=== PATIENT | female | born 1965 | race Caucasian/White ===

== ENCOUNTER 2023-09-11 14:23 | Outpatient (CLI) | payer BC, SELFPAY ==
--- NOTE | 2023-09-11 13:00 | DI.RAD_ITS ---
Exam(s) XR HIP PELVIS ADULT BL EXAM: XR HIP PELVIS ADULT BL CLINICAL HISTORY: BILATERAL HIP PAIN. TECHNIQUE: 2D digital imaging was performed of the pelvis and bilateral hips. Five images were obta ined. AP pelvis and lateral views of both hips were obtained. COMPARISON: No exams were available for comparison FINDINGS: BONES: No acute fracture is present. No bony destructive lesion is seen. JOINTS: No dislocation present. There is mild axial joint space narrowing of the hips bilaterally. SOFT TISSUE: Normal. IMPRESSION: Mild joint space narrowing of the hips bilaterally. DATA REPOSITORY: RADIATION DOSE DELIVERED:
== END 2023-09-11 14:24 | disposition home or self-care (01) ==
LOC: DIORS 14:23
PROVIDERS: PCP Nurse Practitioner; Visit Provider Student in an Organized Health Care Education/Training Program
DX: M16.0 Bilateral primary osteoarthritis of hip
CPT/HCPCS: 73521

== ENCOUNTER 2023-11-07 09:43 | Day surgery (SDC) | payer BC, SELFPAY ==
[2023-11-07] VITALS (11 sets, daily range): BP systolic 87–139; BP diastolic 36–80; PULSE 73–86; RESP 12–19; TEMP 36.3–36.7; O2SAT 92–98; BMI 35.6
--- NOTE | 2023-11-07 07:19 | W.PM.DSUDISC ---
Date of service: 11/07/23 Time of Service: 14:00 Discharge Plan Disposition Patient Disposition: Home Condition: Stable Discharge Details Attending Provider: Farrukh Nicholson Primary Care Provider: Leticia Victor Home Meds and New Rx's Prescriptions: New naproxen 250 mg tablet 250 - 500 mg PO BID PRN (Reason: moderate pain and swelling) Qty: 40 0RF oxycodone 5 mg tablet 5 - 10 mg PO .q4-6h PRN (Reason: severe pain) Qty: 12 0RF aspirin 81 mg capsule 81 mg PO BID 14 Days Qty: 28 0RF Continued omeprazole 20 mg capsule,delayed release(DR/EC) 20 mg PO DAILY atorvastatin 20 mg tablet 20 mg PO QHS ferrous sulfate 325 mg (65 mg iron) tablet 325 mg PO DAILY potassium chloride 20 mEq tablet extended release 20 meq PO DAILY duloxetine 60 mg capsule,delayed release(DR/EC) 60 mg PO DAILY labetalol 200 mg tablet 200 mg PO BID losartan 50 mg tablet 50 mg PO DAILY chlorthalidone 25 mg tablet 25 mg PO DAILY cyclobenzaprine 5 mg tablet 5 mg PO QHS PRN metformin 500 mg tablet 500 mg PO DAILY hydroxychloroquine 200 mg tablet 200 mg PO BID semaglutide 2 mg/dose (8 mg/3 mL) pen injector 2 mg subcut QWEEK conjugated estrogens 0.625 mg tablet 0.625 mg PO DAILY Rx Instructions: cyclically Discharge Instructions Additional Instructions: Surgery: Bilateral hip endoscopy with iliotibial band release and trochanteric bursectomy Activity: Weightbearing as tolerated. May use walker as needed for a few days. Gradually advance to full range of motion and activity over the next few weeks. A physical therapy prescription will be provided separately in the office at follow up if needed. Prescriptions: Aspirin 81 mg take 1 twice daily to prevent a blood clot for 2 weeks, starting tomorrow morning Naproxen 250 mg take 1-2 every 12 hours with a meal as needed for moderate pain Oxycodone 5 mg take 1-2 every 4-6 hours as needed for severe pain You may use [id number] Tylenol (acetaminophen) as needed for mild pain. These pain medications may be taken all at once or in different combinations as needed. Also, recommend Colace (docusate) as a stool softener as surgery and pain medicine cause constipation. You may try [id number] diphenhydramine (Benadryl) 25-50 mg nightly as a sleep aid Dressings: Leave dressing in place for 3 days. May then remove and leave open to air or cover incisions with Band-Aids. Leave the sticky Steri-Strips in place until they fall off or remove them after you shower. May shower after 5 days. Follow-up: 10-[address] Nicholson You may take off the leg compression stockings this evening at home. You may also leave them on a few days longer if you have a history of leg swelling or edema. Let us know right away if you develop any redness, drainage, fevers, chest pain, or trouble breathing. Do not drink alcohol or drive for at least 24 hours after anesthesia. Please call the office during business hours with any questions or concerns. Discharge Orders Discharge Orders: Discharge Order (Routine); Ordered 11/07/23 Ordered By: Tosin Blood DS: Diagnosis Discharge Diagnosis (1) Iliotibial band syndrome of both sides: Status: Acute (2) Trochanteric bursitis of both hips: Status: Acute
[2023-11-07] MEDS: Lactated Ringers 1,000 ML 30 ML IV ×2 (10:45→15:18)
--- NOTE | 2023-11-07 12:36 | W.ANESPRE ---
General Info Date of Service Date Performed: 11/07/23 Height: 5 ft 2 in Weight: 88.451 kg Body Mass Index (BMI): 35.6 Surgical Procedure: Operation Date: 11/07/23 12:50 Proposed Procedure Side Surgeon p Endoscopic Iliotibial Band Release w/ Buresectomy Bilateral Farrukh Nicholson MD Meds Allergies and Home Medications Allergies Allergy/AdvReac Type Severity Reaction Status Date / Time No Known Allergies Allergy Verified 11/05/23 14:03 Home Medication Medication Instructions Recorded atorvastatin 20 mg tablet 20 mg PO QHS 08/27/23 chlorthalidone 25 mg tablet 25 mg PO DAILY 08/27/23 conjugated estrogens 0.625 mg 0.625 mg PO DAILY 08/27/23 tablet cyclobenzaprine 5 mg tablet 5 mg PO QHS PRN 08/27/23 duloxetine 60 mg capsule,delayed 60 mg PO DAILY 08/27/23 release ferrous sulfate 325 mg (65 mg 325 mg PO DAILY 08/27/23 iron) tablet hydroxychloroquine 200 mg tablet 200 mg PO BID 08/27/23 labetalol 200 mg tablet 200 mg PO BID 08/27/23 losartan 50 mg tablet 50 mg PO DAILY 08/27/23 metformin 500 mg tablet 500 mg PO DAILY 08/27/23 omeprazole 20 mg capsule,delayed 20 mg PO DAILY 08/27/23 release potassium chloride 20 mEq 20 meq PO DAILY 08/27/23 tablet,extended release semaglutide 2 mg/dose (8 mg/3 mL) 2 mg subcut QWEEK 08/27/23 subcutaneous pen injector Current Visit Medications: Current Medications Generic Name Dose Route Start Last Admin Trade Name Ermiasq PRN Reason Stop Dose Admin Ringer's Solution 1,000 mls @ 30 mls/hr 11/07/23 06:00 11/07/23 10:45 IV 11/07/23 23:59 30 mls/hr INFUSION JAMILA Administration Cefazolin Sodium/Dextrose 2 gm in 50 mls @ 100 mls/hr 11/07/23 06:00 Ancef Duplex IVPB 11/07/23 23:59 PREOP JAMILA IV Miscellaneous Supplies 1 each 11/07/23 06:00 Iv Access IV 11/07/23 23:59 DIRECTED JAMILA Oxycodone HCl 0 mg 11/07/23 07:18 Oxycodone 5 Mg Tab PO 12/07/23 07:17 Q3H PRN PRN Pain Sodium Chloride 0 ml 11/07/23 06:00 Normal Saline Flush 10 Ml Syr IV 11/07/23 23:59 PRN PRN Sodium Chloride 0 ml 11/07/23 06:00 Normal Saline 10 Ml Vial IJ 11/07/23 23:59 DIRECTED PRN Sterile Water 0 ml 11/07/23 06:00 Water,Injection,Sterile 10 Ml Vial IJ 11/07/23 23:59 DIRECTED PRN PFSH Active Problems Active Problems: Problem Status Onset Code Iliotibial band syndrome of both sides M76.31, M76.32 Trochanteric bursitis of both hips M70.61, M70.62 Obesity E66.9 Rheumatoid arthritis M06.9 Chronic pain syndrome G89.4 Hypertension I10 Type 2 diabetes mellitus E11.9 Medical History Medical History Former smoker Stress incontinence Post menopausal syndrome Chronic fatigue Mood disorder Surgical History Surgical History Hx of cholecystectomy History of repair of ACL Hx of repair of rotator cuff History of right knee joint replacement History of hysteroscopy DOS 12/03/19 WITH D AND C STRE Tobacco Smoking/Tobacco Use Status: Former Tobacco Use Alcohol Alcohol Intake: former Substance Use Substance use: Never Substance use type: does not use Vital Signs and Lab Results Vital Signs Most Recent Vital Signs in EMR: Most Recent Vital Signs Temp Pulse Resp BP Pulse Ox 36.3 C L 78 18 123/76 98 11/07/23 09:47 11/07/23 09:47 11/07/23 09:47 11/07/23 09:47 11/07/23 09:47 Point of Care Results Point of Care Results: Finger Stick Blood Glucose 111 11/07/23 10:12 Lab Results Blood Type / Crossmatch: No Data to Display Complete Blood Count: No Data to Display Complete Metabolic Panel: No Data to Display Liver Function Panel: No Data to Display Coagulation Panel: No Data to Display Cardiac Panel: No Data to Display Arterial Blood Gas: No Data to Display Venous Blood Gas: No Data to Display Pancreas Panel: No Data to Display Thyroid Panel: No Data to Display Infectious Disease: No Data to Display Blood Cultures: No Data to Display Toxicology Panel: No Data to Display Anesthesia Assessment and Plan Anesthesia History Personal History: No History of Anesthesia Complications Family History: No Family History of Anesthesia Complications Exercise Tolerance Exercise Tolerance: Metabolic Equivalents>4 Pertinent Negatives Pertinent Negatives: No Symptoms of GERD (RX treatment) Cardiac & Pulmonary Exam Cardiac Exam: Normal S1/S2 Heart Sounds Pulmonary Exam: Clear Bilateral Breath Sounds Implantable Cardiac Device Does patient have a Pacemaker or an ICD?: No Airway Exam Known Difficult Airway: No Mallampati Class: 2 Mouth Opening: Normal (> 3cm) Thyromental Distance: Greater than 3 cm Neck Range of Motion: Full ROM Neck Circumference: Normal Teeth Condition: Normal Dentition ASA Classification ASA Score: ASA 2 Emergency Case?: No NPO Status NPO Status: NPO Clears >2 hours, Solids >8 hours Anesthesia Plan Resuscitation Status: Full Code Anesthesia Technique: General Anesthesia Airway Planned: Endotracheal Tube Monitors Used: Standard Monitors
--- NOTE | 2023-11-07 13:18 | ROE_ITS ---
Date of service: 11/07/23 Time of Service: 14:00 Operative Note Operative Note DATE OF PROCEDURE: 11/07/23 PRE-OP DIAGNOSIS: Bilateral hip 1. Iliotibial band syndrome 2. Trochanteric bursitis POST-OP DIAGNOSIS: same PROCEDURE: Left hip endoscopic 1. Iiliotibial band release, CPT# 96763 2. Trochanteric bursectomy, CPT# 40228 Right hip endoscopic 1. Iiliotibial band release, CPT# 84126 2. Trochanteric bursectomy, CPT# 75217 SURGEON: Farrukh Nicholson ANESTHESIA TYPE: Local By Surgeon and General LMA/ETT Refer to Anesthesia Record ESTIMATED BLOOD LOSS: 10 COMPLICATIONS: None Patient was transported to: PACU Patient's condition: stable Indications: Please see complete medical record for details. Findings: Bilaterally thickened iliotibial band. And inflamed, abundant trochanteric bursitis. No significant gluteal tendon tearing. Procedure Description: In the operating room, general anesthesia was induced. The patient was positioned supine on the [place] operating room table. All bony prominences were well-padded. Preoperative antibiotics were administered. The left hip was prepped and draped in the usual sterile fashion. The correct patient, procedure, and side of the procedure were all verified prior to incision. 30 cc of 0.25% bupivacaine containing epinephrine was infiltrated about the subcutaneous tissues for the planned anterior lateral and distal anterolateral portals as well as deeply over the greater trochanter. A knife was used to incise the skin for the anterior lateral and distal anterolateral portals followed by blunt dissection subcutaneously. Under fluoroscopic guidance, a switching stick and arthroscope were inserted localizing the iliotibial band over the greater trochanter. Blunt dissection and the mechanical shaver were used to resect fat and overlying tissue about the center of the iliotibial band and carefully expose the anterior and posterior margins. Once there was adequate exposure of the IT band, the greater trochanter was again localized under fluoroscopic guidance with a spinal needle inserted through the skin down to bone. This central area was marked using the radiofrequency ablator. A [place] blade was brought in and used to create a 2 cm longitudinal incision in line with the IT band fibers as well as extending it in a cruciate fashion with 2 cm incisions anteriorly and posteriorly. The radiofrequency ablator was used to achieve hemostasis. The mechanical shaver was then used to debride the IT band released edges exposing the trochanteric bursa. The mechanical shaver was then used to excise the trochanteric bursa taking care to protect musculature about the margins of the greater trochanter as well as neurovascular structures especially posteriorly. There was excellent visualization of the vastus lateralis as well as gluteus medius confirming appropriate bursa excision. The hip was brought through range of motion including internal and external rotation and there was no impinging iliotibial band tissue or remaining pathologic bursa. The viewing and working portals were switched and appropriate IT band release, trochanteric bursa excision, and hemostasis confirmed. Suction was used to remove fluid from the endoscopic space. The portals were closed using 3-0 Monocryl in a buried fashion. Steri-Strips were applied over the incisions followed by Xeroform, 4 x 4 gauze, an ABD pad, and secured with tape. Next, the Right hip was prepped and draped in the usual sterile fashion. 30 cc of 0.25% bupivacaine containing epinephrine was infiltrated about the subcutaneous tissues for the planned anterior lateral and distal anterolateral portals as well as deeply over the greater trochanter. A knife was used to incise the skin for the anterior lateral and distal anterolateral portals followed by blunt dissection subcutaneously. Under fluoroscopic guidance, a switching stick and arthroscope were inserted localizing the iliotibial band over the greater trochanter. Blunt dissection and the mechanical shaver were used to resect fat and overlying tissue about the center of the iliotibial band and carefully expose the anterior and posterior margins. Once there was adequate exposure of the IT band, the greater trochanter was again localized under fluoroscopic guidance with a spinal needle inserted through the skin down to bone. This central area was marked using the radiofrequency ablator. A [place] blade was brought in and used to create a 2 cm longitudinal incision in line with the IT band fibers as well as extending it in a cruciate fashion with 2 cm incisions anteriorly and posteriorly. The radiofrequency ablator was used to achieve hemostasis. The mechanical shaver was then used to debride the IT band released edges exposing the trochanteric bursa. The mechanical shaver was then used to excise the trochanteric bursa taking care to protect musculature about the margins of the greater trochanter as well as neurovascular structures especially posteriorly. There was excellent visualization of the vastus lateralis as well as gluteus medius confirming appropriate bursa excision. The hip was brought through range of motion including internal and external rotation and there was no impinging iliotibial band tissue or remaining pathologic bursa. The viewing and working portals were switched and appropriate IT band release, trochanteric bursa excision, and hemostasis confirmed. Suction was used to remove fluid from the endoscopic space. The portals were closed using 3-0 Monocryl in a buried fashion. Steri-Strips were applied over the incisions followed by Xeroform, 4 x 4 gauze, an ABD pad, and secured with tape. The patient awoke from anesthesia without complication and was transferred to the recovery room in a stable condition.
[2023-11-07] MEDS: ceFAZolin 2 GM/50 ML BAG IVPB (13:23)
[2023-11-07] MEDS: Tranexamic Acid 1,000 MG/10 ML VIAL 1000 MG (13:56)
[2023-11-07] MEDS: Bupivacaine 0.25% Pres-Free 30 ML VIAL (13:58)
--- NOTE | 2023-11-07 14:15 | DI.RAD_ITS ---
Exam(s) XR HIP LT IN OR EXAM: XR HIP LT IN OR CLINICAL HISTORY: left hip bursitis. TECHNIQUE: 2D and realtime digital imaging was performed. COMPARISON: No exams were available for comparison FINDINGS: Please see procedure note for details. Fluoro time: 5seconds RADIATION DOSE DELIVERED: juno Dacosta=0.69 mGy
[2023-11-07] MEDS: EPINEPHrine 10 MG/10 ML ML (14:53)
--- NOTE | 2023-11-07 14:53 | DI.RAD_ITS ---
Exam(s) XR HIP RT IN OR EXAM: XR HIP RT IN OR CLINICAL HISTORY: right hip bursitis. TECHNIQUE: 2D and realtime digital imaging was performed. COMPARISON: CR XR HIP PELVIS ADULT BL from 09/11/2023 FINDINGS: Please see procedure note for details. Fluoro time: 4.8seconds RADIATION DOSE DELIVERED: juno Dacosta=0.78 mGy
[2023-11-07] MEDS: fentaNYL 100 MCG/2 ML VIAL IVP ×2 (15:16→15:22)
[2023-11-07] MEDS: Normal Saline 10 ML VIAL IJ (15:38)
[2023-11-07] MEDS: HYDROmorphone 2 MG/ML SYR IVP ×2 (15:39→15:59)
--- NOTE | 2023-11-07 16:11 | W.ANESPOSTOP ---
Postoperative Evaluation Date, Time and Location Date Performed: 11/07/23 Time Performed: 16:12 Patient Location: PACU Vital Signs Most Recent Imported Vital Signs: Most Recent Vital Signs Temp Pulse Resp BP Pulse Ox 36.3 C L 79 15 121/62 95 11/07/23 16:10 11/07/23 16:10 11/07/23 16:10 11/07/23 16:10 11/07/23 16:10 Pain Score Most Recent Pain Score: Most Recent Pain Score Pain Level 3 11/07/23 16:10 Assessment Mental Status: Awake (Alert & Oriented to Patient Baseline) Airway and Respiratory Function: Patent airway with normal (patient baseline) respiratory exam Cardiovascular Function: Hemodynamically Stable Hydration Status: Adequately Hydrated Nausea & Vomiting: No Nausea or Vomiting Pain: Pain is tolerable per patient Peripheral Nerve Block: Patient did not receive a nerve block
[2023-11-07] MEDS: oxyCODONE 5 MG TAB PO (16:50)
== END 2023-11-07 17:25 | disposition home or self-care (01) ==
LOC: SUR 09:44
PROVIDERS: PCP Nurse Practitioner; Visit Provider Student in an Organized Health Care Education/Training Program
PROC: (CPT 29863; principal; 2023-11-07 12:30)
DX: M76.31 Iliotibial band syndrome, right leg (principal); M76.32 Iliotibial band syndrome, left leg; M70.61 Trochanteric bursitis, right hip; M70.62 Trochanteric bursitis, left hip
CPT/HCPCS: 27062; 27305; 73501; J0665; J0690; J1100; J1170; J1885; J2001; J2250; J2405; J2704; J3010